=== PATIENT | female | born 1960 | race Caucasian/White ===

== ENCOUNTER 2017-05-30 17:54 | Emergency (ER) | payer OTHER, MEDICAID ==
[~2017-05-30] VITALS: Ht 167.6 cm; Wt 68.5 kg
[~2017-05-30 17:54] MED LIST: ASPI81CT27 PO; GABA600T1 PO; LOSA25TA14 PO; MECL-272 PO; METH500T18 PO; METO-485 PO; METO50TA69 PO; MULT-1469 PO; VENL75TA17 PO; [UNRECOGNIZED DRUG - CODE] PO
--- NOTE | 2017-05-30 18:15 | NUR ---
CALLED PT FOR TRIAGE ASSESSMENT, NO ANSWER.
[2017-05-30 18:23] VITALS: BP 142/73
--- NOTE | 2017-05-30 20:36 | NUR ---
PATIENT LEFT WITHOUT BEING SEEN BY DR. LEON. NO FURTHER CARE PROVIDED FOR PATIENT.
== END 2017-05-30 20:36 | disposition left against medical advice (07) ==
LOC: MED 17:54
DX: R51 Headache (principal); Z53.21 Procedure and treatment not carried out due to patient leaving prior to being seen by health care provider

== ENCOUNTER 2017-09-06 07:48 | Emergency (ER) | payer OTHER ==
[~2017-09-06] VITALS: Ht 165.1 cm; Wt 72.8 kg
[~2017-09-06 07:48] MED LIST changes: -ASPI81CT27 PO; +ASPI81CT95 PO; +LEVO0.0512 PO; +METO50TA20 PO; -METO50TA69 PO; -[UNRECOGNIZED DRUG - CODE] PO
[2017-09-06 08:12] VITALS: BP 155/73
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
--- NOTE | 2017-09-06 08:46 | NUR ---
Patient being evaluated by physician at bedside.
[2017-09-06] MEDS ORDERED: BACITRACIN OINT 500 UNITS/GM PKT TP ONE (09:07)
--- NOTE | 2017-09-06 09:15 | NUR ---
wound care complete. pt barry well.
--- NOTE | 2017-09-06 09:35 | NUR ---
Patient discharged with v/s stable. Written and verbal after care instructions given and explained. Patient alert, oriented and verbalized understanding of instructions. Ambulatory with steady gait. All questions addressed prior to discharge. ID band removed. Patient advised to follow up with PMD. Rx of clindamycin and motrin given. Patient educated on indication of medication including possible reaction and side effects. Opportunity to ask questions provided and answered.
[2017-09-06 09:39] VITALS: BP 144/79
== END 2017-09-06 09:35 | disposition home or self-care (01) ==
LOC: MED 07:48
DX: S51.852A Open bite of left forearm, initial encounter (principal); E11.9 Type 2 diabetes mellitus without complications; I10 Essential (primary) hypertension; Z88.6 Allergy status to analgesic agent; Z88.5 Allergy status to narcotic agent; Z88.0 Allergy status to penicillin; W54.0XXA Bitten by dog, initial encounter; Y93.89 Activity, other specified; Y92.89 Other specified places as the place of occurrence of the external cause; Y99.8 Other external cause status
CPT/HCPCS: 90471; 90715; 99283

== ENCOUNTER 2020-04-11 13:56 | Emergency (ER) | payer OTHER ==
[~2020-04-11] VITALS: Ht 154.9 cm; Wt 77.6 kg
[~2020-04-11 13:56] MED LIST changes: -LOSA25TA14 PO; +LOSA25TA32 PO; -MECL-272 PO; +MECL-303 PO
[2020-04-11 14:05] VITALS: BP 124/61
[2020-04-11 15:29] VITALS: BP 124/61
== END 2020-04-11 15:29 | disposition home or self-care (01) ==
LOC: MED 13:56
DX: M25.531 Pain in right wrist (principal); E11.22 Type 2 diabetes mellitus with diabetic chronic kidney disease; I12.9 Hypertensive chronic kidney disease with stage 1 through stage 4 chronic kidney disease, or unspecified chronic kidney disease; N18.9 Chronic kidney disease, unspecified; Z99.2 Dependence on renal dialysis; Z79.82 Long term (current) use of aspirin; Z79.899 Other long term (current) drug therapy; Z88.0 Allergy status to penicillin; Z88.5 Allergy status to narcotic agent; Z88.6 Allergy status to analgesic agent; Z88.8 Allergy status to other drugs, medicaments and biological substances
CPT/HCPCS: 73110; 99283

== ENCOUNTER 2020-08-02 12:53 | Emergency (ER) | payer OTHER ==
[~2020-08-02] VITALS: Ht 165.1 cm; Wt 78.5 kg
[2020-08-02 13:09] VITALS: BP 131/65
--- NOTE | 2020-08-02 13:15 | NUR ---
60 Y/O FEMALE C/O L CHEST PAIN X 2 DAYS. SEEN BY PCP TODAY & HAD EKG : S. BRADYCARDIA WITH SINUS AARRHYTHEMIA. (OLD)LEFT UPPER ARM SHUNT. MED HX: DM, KIDNEY TRASPLANT 2011, HEART BY PASS 2008
--- NOTE | 2020-08-02 13:49 | NUR ---
Dr. Restrepo is evaluating the patient at bedside.
--- NOTE | 2020-08-02 13:55 | NUR ---
[facility]as tech at pt bedside.
--- NOTE | 2020-08-02 14:02 | NUR ---
Ezequiel EMT at bedside performing EKG.
[2020-08-02 14:19] LABS: EOSINOPHILS # (AUTO) 0.4 K/uL (0-0.4); EOSINOPHILS % (AUTO) 8.8 % (0.0-4.0); HEMATOCRIT 39.2 % (36-48); HEMOGLOBIN 12.5 g/dL (12.0-16.0); LYMPHOCYTES # (AUTO) 0.9 K/uL (2.5-16.5); MEAN CORPUSCULAR HEMOGLOBIN 29 pg (27-31); MEAN CORPUSCULAR HGB CONC 32 g/dL (33-37); MEAN CORPUSCULAR VOLUME 90.6 fL (80-94); MONOCYTES # (AUTO) 0.5 K/uL (0.8-1.0); MONOCYTES % (AUTO) 13.3 % (1.7-9.3); NEUTROPHILS # (AUTO) 2.3 K/uL (1.8-7.7); NEUTROPHILS % (AUTO) 55.9 % (42.2-75.2); PLATELET COUNT (AUTO) 166 K/uL (140-450); RED BLOOD CELL COUNT(AUTO) 4.33 MIL/uL (4.20-5.40); RED CELL DISTRIBUTION WIDTH 13.9 % (11.6-13.7); WHITE BLOOD COUNT (AUTO) 4.1 K/uL (4.8-10.8)
[2020-08-02 14:37] LABS: ALBUMIN 3.5 g/dL (3.4-5.0); ANION GAP 10.3 (8-16); CARBON DIOXIDE 29.7 mmol/L (21-32); CREATININE 1.2 mg/dL (0.6-1.3); TOTAL BILIRUBIN 0.4 mg/dL (0.0-1.0)
--- NOTE | 2020-08-02 15:06 | NUR ---
ANABELLE KEEN performed, walked to lab.
[2020-08-02 15:07] VITALS: BP 131/65
--- NOTE | 2020-08-02 15:07 | NUR ---
Patient discharged with v/s stable. Written and verbal after care instructions given and explained. Patient verbalized understanding. Ambulatory with steady gait. All questions addressed prior to discharge. Advised to follow up with PMD.
--- NOTE | 2020-08-04 10:59 | NUR ---
Covid results received from lab. Results = NEGATIVE. Hard copy requested from lab and placed in infection controls mailbox.
== END 2020-08-02 15:07 | disposition home or self-care (01) ==
LOC: MED 12:53
DX: R07.9 Chest pain, unspecified (principal); Z20.828 Contact with and (suspected) exposure to other viral communicable diseases; R94.31 Abnormal electrocardiogram [ECG] [EKG]; E11.9 Type 2 diabetes mellitus without complications; I10 Essential (primary) hypertension; Z79.899 Other long term (current) drug therapy; Z79.82 Long term (current) use of aspirin; Z88.0 Allergy status to penicillin; Z88.6 Allergy status to analgesic agent; Z88.5 Allergy status to narcotic agent
CPT/HCPCS: 36415; 71045; 80053; 84484; 85025; 93005; 99284; U0003

== ENCOUNTER 2022-11-09 19:06 | Emergency (ER) | payer OTHER ==
[~2022-11-09] VITALS: Ht 165.1 cm; Wt 79.4 kg
[~2022-11-09 19:06] MED LIST changes: +METH-1866 PO; -METH500T18 PO
[2022-11-09 19:34] VITALS: BP 153/64
[2022-11-09] MEDS ORDERED: HYDROcodone/APAP 5/325 MG 1 TAB TAB PO ONE (21:20)
[2022-11-09 22:50] VITALS: BP 125/74
== END 2022-11-09 22:50 | disposition home or self-care (01) ==
LOC: MED 19:06
DX: S62.337A Displaced fracture of neck of fifth metacarpal bone, left hand, initial encounter for closed fracture (principal); Z87.448 Personal history of other diseases of urinary system; I11.0 Hypertensive heart disease with heart failure; I50.9 Heart failure, unspecified; J44.9 Chronic obstructive pulmonary disease, unspecified; E10.9 Type 1 diabetes mellitus without complications; Z94.0 Kidney transplant status; Z98.890 Other specified postprocedural states; Z79.899 Other long term (current) drug therapy; Z79.82 Long term (current) use of aspirin; Z88.0 Allergy status to penicillin; Z88.6 Allergy status to analgesic agent; Z88.5 Allergy status to narcotic agent; W18.39XA Other fall on same level, initial encounter; Y92.89 Other specified places as the place of occurrence of the external cause; Y93.89 Activity, other specified; Y99.8 Other external cause status
CPT/HCPCS: 29125; 73130; 73562; 99284; Q0092